=== PATIENT | male | born 1980 | race Caucasian/White ===

== ENCOUNTER 2023-08-21 20:04 | Emergency (ER) | payer BC, SELFPAY ==
[2023-08-21 20:07] VITALS: BP 118/65; PULSE 55; RESP 18; TEMP 35.8; O2SAT 98
[2023-08-21] MEDS: Lidocaine/Epinephri/Tetracaine Topical Gel 3 ML (20:18)
--- NOTE | 2023-08-21 20:23 | W.ED.GENAD ---
Discharge Plan Disposition Patient Disposition: Home Condition: Good Discharge Details Clinical Impression: Periorbital hematoma of left eye, Face lacerations Primary Care Provider: Mirna,Local ED Provider: Pastora Sol Home Meds and New Rx's Prescriptions: No Action No Known Home Meds Discharge Instructions Instructions: Facial Laceration (ED) Additional Instructions: Please call an eye doctor first thing in the morning to schedule follow-up appointment for Wednesday or Wednesday morning for reassessment. Continue using ice for 15 to 20 minutes at a time to help with swelling. Keep the wounds clean and dry. Wash daily with antibacterial soap and water. Leave the Steri-Strips in place, they will fall off on their own. Do not use any ointment on the glue, as this may degrade the Dermabond use. Keep an eye out for signs of infection such as redness/swelling/pus drainage, as well as signs of acute changes to your eye such as change in vision, worsening eye pain, pain with movement of your eye. If you notice any of these or have any other significant concerns, please seek care immediately at the emergency department HPI General Date/Time Provider Initiated Documentation: 08/21/23 20:07. HPI Narrative: Derrek is a 42-year-old male who presents to the emergency department today for evaluation of left eye injury. He reports he was working on a ladder when he slipped, causing the ladder to fall forward hitting him in the face. He sustained lacerations to his left eye. He reports blurred vision to his left eye, says that he is not sure if this is due to the tearing. He denies headache, neck pain, nausea/vomiting, other injuries. No previous injury to his eye. Denies significant past medical history. He lives in [place], has a PCP and eye doctor he can follow-up with. Related Data Home Medications Medication Instructions Recorded Confirmed Unknown [No Known Home Meds] 08/21/23 08/21/23 Allergies Allergy/AdvReac Type Severity Reaction Status Date / Time No Known Allergies Allergy Unverified 08/21/23 20:22 General Stated Complaint: Laceration YOHANNES: 3 Review of Systems Narrative: see HPI Exam Const General: cooperative, healthy appearing, comfortable, no acute distress and well developed Nutritional Appearance: average body habitus [facility] Head: normal to inspection, no palpable skull fracture and no hematomas Ears: hearing grossly normal bilaterally and external ears normal General nose exam: other (1 cm laceration noted to bridge of nose) Face and sinus: face symmetric Mouth: oral mucosae normal Eyes Periorbital: periorbital findings abnormal left ((2) 1 cm curved flap lacerations noted to upper eyelid approx 1 cm superior to lid margin) periorbital ecchymosis Conjunctivae: conjunctivae normal Sclera: sclerae normal Cornea: corneas normal and fluorescein used Pupils: PERRL EOM: EOM intact bilaterally Neck Neck: normal visual inspection and full ROM Neuro General: patient oriented x3 Cranial Nerves: CN's II-XI intact bilaterally, no nystagmus, facial strength normal, able to rotate head bilaterally and able to elevate shoulders bilaterally Cognition: normal cognition Speech: speech normal Gait: normal gait Motor: muscle tone normal throughout Course Vital Signs Vital signs: Vital Signs Temperature 35.8 C L 08/21/23 20:07 Pulse 55 L 08/21/23 20:07 Respiratory Rate 18 08/21/23 20:07 Blood Pressure 118/65 08/21/23 20:07 Pulse Oximetry 98 08/21/23 20:07 Temperature 35.8 C L 08/21/23 20:07 Temperature Source Tympanic 08/21/23 20:07 Pulse 55 L 08/21/23 20:07 Respiratory Rate 18 08/21/23 20:07 Respiratory Effort Normal 08/21/23 20:09 Blood Pressure 118/65 08/21/23 20:07 Pulse Oximetry 98 08/21/23 20:07 Oxygen Delivery Method Room Air 08/21/23 20:07 Oxygen Flow Rate 0 08/21/23 20:07 Pain Level 4 08/21/23 20:07 Procedures Laceration Laceration 1: Site: face (L upper eyelid) Size (cm): 1 Description: flap Depth: simple, single layer Local Anesthetic: other anesthetic (LET) Pre-repair: wound explored, irrigated extensively and deep structures intact Skin layer closed with: other (dermabond and steristrip) Laceration 2: Site: face (bridge of nose) Side (If applicable): left Description: linear Depth: simple, single layer Local Anesthetic: other anesthetic (LET) Pre-repair: wound explored and irrigated extensively Skin layer closed with: other (dermabond) Laceration 3: Site: face (L side of face) Size (cm): 2 Description: linear Depth: simple, single layer Pre-repair: wound explored, irrigated extensively and deep structures intact Skin layer closed with: other (dermabond and steristrip) Medical Decision Making Derrek is a 42-year-old male who presents to the emergency department today for evaluation of left eye injury. He reports he was working on a ladder when he slipped, causing the ladder to fall forward hitting him in the face. He sustained lacerations to his left eye. He reports blurred vision to his left eye, says that he is not sure if this is due to the tearing. He denies headache, neck pain, nausea/vomiting, other injuries. No previous injury to his eye. Denies significant past medical history. He lives in [place], has a PCP and eye doctor he can follow-up with. Physical exam remarkable for small 1 cm meter flap lacerations to left upper eyelid, 1 cm laceration noted to bridge of nose, and 1/2 cm linear laceration noted to left jawline. No tenderness with palpation of facial bones. EOMs intact, PERRL. No ciliary flush or subconjunctival hemorrhage. No traumatic hyphema. No scalp tenderness/bogginess. No raccoon eyes or bailey's sign. No corneal abrasions noted with fluorescein stain. No foreign bodies visualized under eyelids. DDx includes was not limited to: Traumatic iritis, orbital fracture, compartment syndrome, uncomplicated laceration/soft tissue injury While in the emergency department Derrek received Tdap booster. Wounds were cleansed extensively with tap water after local anesthetic with let. Explored to the base in a bloodless field, no foreign bodies visualized.. ChloraPrep was used for antisepsis. Wounds were closed using Dermabond and Steri-Strips with good approximation of edges. Patient tolerated procedure well. CT with contrast of the orbits performed, significant for left periorbital hematoma with probable trace retrobulbar hemorrhage. No evidence for fracture. Call placed to [facility] for ophthalmology consult. 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 Reviewed patient presentation, physical exam, and CT scan. Tailercpa reviewed CT images, no retrobulbar hematoma on CT scan, however periorbital hematoma noted as previously reported by [facility] (consistent with clinical presentation). Frequent ice and reassessment by eye care recommended. Upon reassessment prior to discharge, patient denies change in vision (says it has actually improved since arrival to ED), worsening eye pain, or pain with movement of eye; clinical picture very reassuring at this time and pt is appropriate for DC home for outpt f.u. Recommend close follow-up with eye doctor/ophthalmology, frequent ice application, and monitoring of symptoms. Reviewed discharge instructions w/ patient, including wound care and red flags indicate need for return to emergency care. Strongly advise follow-up with eye doctor, he is agreeable with plan of care. Imaging Data Radiologic Study: Radiologist's impression: PROCEDURE INFORMATION: Exam: CT Orbits With Contrast Exam date and time: 08/21/2023 9:03 PM Age: 42 years old Clinical indication: Injury or trauma; Other: Patient fell off 4ft ladder; Blunt trauma (contusions or hematomas) and laceration; Eyelid; Uppeupper rightr right and upper left; Not specified; Upper right and upper left; Injury date: 08/21/2023; Patient HX: Eye injury w blurred vision TECHNIQUE: Imaging protocol: Computed tomography of the orbits with contrast. Radiation optimization: All CT scans at this facility use at least one of these dose optimization techniques: automated exposure control; mA and/or kV adjustment per patient size (includes targeted exams where dose is matched to clinical indication); or iterative reconstruction. Contrast material: [id number]; Contrast volume: 100 ml; Contrast route: INTRAVENOUS (IV); COMPARISON: No relevant prior studies available. FINDINGS: Paranasal sinuses: There are small bilateral maxillary sinus retention cysts, right slightly larger than left. Orbital cavities: Orbits are normal. Globes are unremarkable. Bones/joints: No acute fracture. Soft tissues: There is a prominent left periorbital hematoma. There appears to be trace amounts of air in the left medial supraorbital tissues. There is some soft tissue stranding in the left inferior retro bulbar tissues. IMPRESSION: Significant left periorbital hematoma with probable trace retro bulbar hemorrhage. No evidence for fracture. Quality:SDOH Health Related Social Needs: No Data to Display PFSH All Active Problems (Updated 08/21/23 @ 23:05 by Pastora Delacruz) Face lacerations (Acute) Periorbital hematoma of left eye (Acute) Social History Smoking/Tobacco Use Status: Never Smoking risk assessment performed?: Yes Alcohol Intake: current Drug use: Never Substance use type: does not use
[2023-08-21] MEDS: Fluorescein STRIPS 100/BOX 1 MG OP (21:00)
[2023-08-21] MEDS: Omnipaque 350 MG/ML 100 ML BTL IJ (21:03)
[2023-08-21] MEDS: Normal Saline - Diluent 50 ML VIAL IJ (21:03)
--- NOTE | 2023-08-21 21:13 | DI.CT_ITS ---
Exam(s) CT ORBITS W EXAM: CT ORBITS W CLINICAL HISTORY: eye injury w blurred vision. TECHNIQUE: Imaging Protocol: Axial computed tomography images with coronal and sagittal reformatted images were created and reviewed. No IV contrast COMPARISON: No exams were available for comparison FINDINGS: MAXILLOFACIAL CT SCAN: There is a large left periorbital hematoma but no evidence of obvious orbital blowout fracture. No f luid in the paranasal sinuses There is no evidence of asymmetry within the orbital globes and retro conal fat. Optic nerves appear unremarkable. There is no radiopaque foreign body.. However, IMPRESSION: Prominent periorbital hematoma on the left side. No evidence of orbital blowout fracture. Orbital globes and retro conal compartments appear unremarkable. RADIATION DOSE DELIVERED: 227.76mGy.cm Total DLP DATA REPOSITORY: All CT scans at this facility are submitted to the National Radiology Data Registry (NRDR) Dose Index Registry (DIR) with the [employer] ([employer]). RADIATION OPTIMIZATION: All CT scans at this facility use at least one of these dose optimization te chniques: automated exposure control; mA and/or kV adjustment per patient size (includes targeted exa ms where dose is matched to clinical indication); or iterative reconstruction.
--- NOTE | 2023-08-21 21:53 | DI.VRAD_ITS ---
PROCEDURE INFORMATION: Exam: CT Orbits With Contrast Exam date and time: 08/21/2023 9:03 PM Age: 42 years old Clinical indication: Injury or trauma; Other: Patient fell off 4ft ladder; Blunt trauma (contusions or hematomas) and laceration; Eyelid; Uppeupper rightr right and upper left; Not specified; Upper right and upper left; Injury date: 08/21/2023; Patient HX: Eye injury w blurred vision TECHNIQUE: Imaging protocol: Computed tomography of the orbits with contrast. Radiation optimization: All CT scans at this facility use at least one of these dose optimization techniques: automated exposure control; mA and/or kV adjustment per patient size (includes targeted exams where dose is matched to clinical indication); or iterative reconstruction. Contrast material: [id number]; Contrast volume: 100 ml; Contrast route: INTRAVENOUS (IV); COMPARISON: No relevant prior studies available. FINDINGS: Paranasal sinuses: There are small bilateral maxillary sinus retention cysts, right slightly larger than left. Orbital cavities: Orbits are normal. Globes are unremarkable. Bones/joints: No acute fracture. Soft tissues: There is a prominent left periorbital hematoma. There appears to be trace amounts of air in the left medial supraorbital tissues. There is some soft tissue stranding in the left inferior retro bulbar tissues. IMPRESSION: Significant left periorbital hematoma with probable trace retro bulbar hemorrhage. No evidence for fracture. Dictated and Authenticated by: Kellie Pacheco MD. Ordering:RUI Guillory MD
[2023-08-21 23:29] VITALS: BP 120/80; PULSE 90; RESP 24; TEMP 36.7; O2SAT 98
== END 2023-08-21 23:29 | disposition home or self-care (01) ==
PROVIDERS: Emergency Provider Nurse Practitioner Family
DX: S00.12XA Contusion of left eyelid and periocular area, initial encounter (principal); S01.21XA Laceration without foreign body of nose, initial encounter; S01.112A Laceration without foreign body of left eyelid and periocular area, initial encounter; Z23 Encounter for immunization; W22.8XXA Striking against or struck by other objects, initial encounter; Y93.H9 Activity, other involving exterior property and land maintenance, building and construction; Y92.017 Garden or yard in single-family (private) house as the place of occurrence of the external cause
CPT/HCPCS: 12013; 90471; 90715; 99284; 70481; 82565; J3490